=== PATIENT | female | born 1945 | race Caucasian/White ===

== ENCOUNTER 2017-08-23 14:10 | Inpatient (IN) | payer OTHER, BC ==
[~2017-08-23] VITALS: Ht 162.6 cm; Wt 63.5 kg
--- NOTE | ~2017-08-23 | H ---
[facility] [place] [address] HISTORY AND PHYSICAL Name: SANDY ZHAO Room #: 503-P ADM IN M.R.#: [id number] Admission: 08/25/17 Attend Phys: Jose Pena MD Discharge: Date of : 47 Report #: [id number] THIS REPORT FOR: //name// CC: Jose Randle DATE OF SERVICE: 08/25/2017 Note, I am covering for Dr. Jose Pena and therefore completing this history and physical for him. REFERRING PHYSICIAN: Arnaud Zambrano DO CHIEF COMPLAINT: Mobility and self-care deficits due to right hemiparesis. HISTORY OF PRESENT ILLNESS: The patient is a very pleasant 71-year-old right-hand dominant female who was admitted to [facility] with what was found to be an acute cerebrovascular accident. She has a past medical history of an ascending aortic aneurysm with dissection with repair in 2010, aortic valve replacement with a mechanical valve in 2010. She is on chronic anticoagulation with warfarin. She does have a history of tobacco abuse, hypertension and hyperlipidemia. She was admitted to [facility] on 08/21/2017 with symptoms of a stroke. She developed left-sided facial drooping, speech difficulties and right-sided weakness. She was not given TPA as noted from the records at [facility] because she was on Coumadin with an INR of 3.3. An MRI performed at that hospital was read as showing a left thalamic and high right medial parietal lobe infarction. She was treated with Plavix and pravastatin. Coumadin was held and then resumed on 08/22/2017. She was given heparin drip given heparin drip for bridging. Echocardiogram was read as showing an ejection fraction of 60%. She worked with physical therapy and occupational therapy and speech therapy at that facility. It was determined that she would benefit from an acute inpatient rehabilitation stay due to a decline in her overall function. She is now being admitted under Dr. Pena's care for rehabilitation. PAST MEDICAL HISTORY: As above, also pertinent for what was stated above and tobacco abuse and hypothyroidism. SOCIAL HISTORY: She lives with her in their own home. They have about 4 steps to get into the house. There are no steps once she gets inside. FUNCTIONAL HISTORY: Prior to admission, she was able to drive. She did not use an assistive device to ambulate. [address] [address] HISTORY AND PHYSICAL Name: SANDY ZHAO Room #: 503-P [facility]#: [id number] Admission: 08/25/17 Attend Phys: Jose Pena MD Discharge: Date of : 47 Report #: [id number] MEDICATIONS: Reviewed. Please see the written documentation of this history and physical for full details. ALLERGIES: Reviewed. Once again, please see the written documentation of this history and physical. REVIEW OF SYSTEMS: As above. Specifically, she has a left-sided facial droop. She has some difficulty with speaking. She denies problems with her swallowing function, although she may have had some difficulties at first. She denies chest pain, shortness of breath, fevers and chills. Otherwise, remainder of a 14-point review is negative except for what was stated above. PHYSICAL EXAMINATION: VITAL SIGNS: Her temperature is 36.7, pulse of 55, respirations 19, blood pressure 131/54. GENERAL: No acute distress, well developed, well nourished. CARDIOVASCULAR: S1, S2, irregular heart rate. LUNGS: Clear to auscultation. ABDOMEN: Soft, nontender, nondistended, positive bowel sounds. EXTREMITIES: Calves nontender. LYMPHATICS: No cervical adenopathy. MUSCULOSKELETAL: Functionally, she shows weakness on the right side with strength graded at 4-/5 proximally and distally. She is able to dorsiflex her right wrist and extend her fingers. Her right leg strength is also 4-/5 proximally and distally and there is evidence of a dorsiflexion present in the right ankle with a strength of 4-/5. Tone within normal limits on the left. Right side was mildly flaccid. NEUROLOGIC AND PSYCHIATRIC: Coordination is fair. Muscle stretch reflexes are 1/4 and symmetric. Sensation is intact. She is alert, able to answer my questions, pleasant and cooperative with the exam. She is dysarthric. There was no wet or gurgling quality to her voice. There was mild aphasia identified. IMPRESSION: Mobility and self-care deficits in a 71-year-old right-hand dominant female secondary to: 1. Dominant-sided hemiparesis secondary to ischemic cerebrovascular accident, left middle cerebral artery. 2. Dysarthria. 3. Balance impairment due to cerebrovascular accident. 4. Tobacco abuse. 5. Hypothyroidism. 6. Fine motor coordination impairments of the right upper extremity. 7. Mild footdrop on the right. 8. Facial droop, left side, likely due to high right medial parietal lobe infarction. [facility] [address] [place] [address] HISTORY AND PHYSICAL Name: SANDY ZHAO Room #: 503-P ADM IN Meet.#: [id number] Admission: 08/25/17 Attend Phys: Jose Pena MD Discharge: Date of : 47 Report #: [id number] PLAN: 1. Admit to the rehabilitation unit for comprehensive therapies. 2. Please see the plan of care post-admission physician evaluation and admission orders for full details of her rehabilitation care plan. 3. Weekly therapy meetings will be conducted with the team to discuss a rehabilitation progress. 4. Develop the rehabilitation program with her rehabilitation team. 5. Dr. Pena returns this coming Monday to assume care. 6. Smoking cessation counseling provided. POST-ADMISSION PHYSICIAN EVALUATION: A post-admission physician evaluation was conducted today. The patient's preadmission screening was reviewed in its entirety by myself. The current clinical status is supported by the information contained within. The patient is an appropriate candidate to undergo a comprehensive inpatient rehabilitation program consisting of PT, OT and ST 3 hours a day for at least 5 days per week. Furthermore, nothing has changed since the preadmission screening was completed to suggest that the patient would not be able to tolerate, would benefit from the rehabilitation program. It is my opinion that inpatient rehabilitation rather than senior living is more appropriate for the patient due to multiple medical needs, requiring comprehensive followup care. She is at risk for clinical complications during her participation in rehabilitation due to the following adverse medical conditions: Atrial fibrillation; history of valve replacements including a mechanical AVR, on chronic anticoagulation; hypertension; hypothyroidism and tobacco abuse. My plan to manage these conditions, which could impact participation in rehabilitation is to consult Internal Medicine and Dr. Browning of Neuropsychology to address the multiple medical issues. Cardiology may also be needed if Internal Medicine feels it is appropriate. She will have to follow up with Neurology within 6-12 weeks following her rehabilitation and with Cardiology within 2 weeks of discharge. INDIVIDUALIZED OVERALL PLAN OF CARE: Summarization of findings: The patient is receiving inpatient rehabilitation due to the following functional impairments: 1. Dominant-sided right hemiparesis due to cerebrovascular accident. 2. Dysarthria. 3. Left-sided facial droop. 4. Gait impairment due to cerebrovascular accident. 5. Balance impairment due to cerebrovascular accident. IDENTIFIED INTERVENTIONS: Include physical therapy, occupational therapy and speech therapy to address mobility, self-care deficits, communication, cognitive and swallowing impairments. Physical Medicine and Rehabilitation will provide management of her rehabilitation care plan. Internal Medicine will follow up [address] [address] HISTORY AND PHYSICAL Name: PAVELSANDY L Room #: 503-P [facility] IN ..#: [id number] Admission: 08/25/17 Attend Phys: Jose Pena MD Discharge: Date of : 47 Report #: [id number] for multiple medical issues. Rehabilitation nursing care 24 hours a day for care needs will be provided. printing services coordinator for discharge planning and medical equipment needs. Dietitian consultation for nutritional purposes. ESTIMATED LENGTH OF STAY: Approximately 10-14 days. ANTICIPATED FUNCTIONAL OUTCOME: Modified independent with mobility and self-care skills, which is a realistic goal based on her previous level of function. ANTICIPATED DISCHARGE DESTINATION: Home with her family. She will likely need home health services at that time. MEDICAL PROGNOSIS: Good. She will continue to receive Internal Medicine followup. ANTICIPATED THERAPIES: Including physical, occupational and speech therapy, 3 hours a day 5 days a week for an anticipated duration of 14-17 days. SUMMARIZATION OF TREATMENT PLAN: The patient will continue to receive an inpatient rehabilitation program as outlined above in an effort to improve her overall function and return home at a modified independent level within 14-17 days. <ELECTRONICALLY SIGNED> By: Jose Pena MD 09/05/17 [id number] Manuel Melara DO /nt
--- NOTE | ~2017-08-23 | HC ---
[facility] [place] [address] CONSULTATION Name: SANDY ZHAO Room #: 503-P ADM IN M.R.#: [id number] Admission: 08/25/17 Attend Phys: Jose Pena MD Discharge: Date of : 47 Report #: [id number] THIS REPORT FOR: //name// CC: Jose Randle DATE OF SERVICE: 08/27/2017 NEUROBEHAVIORAL STATUS EXAM ATTENDING PHYSICIAN: Jose Pena MD. ASPHALT PAVER: Igor Browning, PhD CLINICAL PRESENTATION: The patient is a 71-year-old female, admitted to [facility] for comprehensive inpatient rehabilitation program to improve functional mobility and activities of daily living and self-care along with mental status secondary to cerebrovascular accident. The patient has a medical history that includes an ascending aortic aneurysm with dissection and repair in 2010 and aortic valve replacement with mechanical valve in 2010. She is on anticoagulation utilizing warfarin. Her history includes tobacco abuse, hypertension and hyperlipidemia. She reported having difficulty with balance and coordination to the extent that her eventually brought her to the hospital. A MRI revealed a left thalamic and high right medial parietal lobe infarction. A complete description of her medical condition and history can be found in her medical records. Neuropsychological consultation was requested to provide assistance in the assessment of cognitive and emotional status and to provide recommendations and services. Prior to this most recent medical event, she was living independently in her home with her . The patient was independent with basic and instrumental activities of daily living. 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 She has 2 children, and her family is described as supportive. TECHNIQUES UTILIZED: Clinical interview, review of medical records, staff consultation and behavioral observation, mini mental status exam 2 standard version, clock drawing and calibrated ideational fluency assessment (letter and category) and brief abstract reasoning test. EXAMINATION FINDINGS: The patient was cooperative and pleasant during the interview and the assessment. There is no evidence of aphasia. She does not report auditory or visual hallucinations. Her presentation includes a dominant side hemiparesis secondary to the CVA. Her symptoms include difficulty with [facility] [address] [place] [address] CONSULTATION Name: SANDY ZHAO Pablito Room #: 503-P [facility] IN M.R.#: [id number] Admission: 08/25/17 Attend Phys: Jose Pena MD Discharge: Date of : 47 Report #: [id number] concentration, word finding and that it is taking her longer and with more effort to complete a task. She denies difficulty with memory or subjective depression. Feelings of anxiety are described. Her performance on the MMSE 2 brief version was extremely low with a raw score of 11 of 16, and T-score of 21. She was 3/3 for initial registration, 4/5 for orientation at time and 3/[address] She was 1/3 correct for immediate recall of 3 items after a brief time delay and distraction. Her performance improved on the MMSE 2 standard version to a raw score of 22 and a T-score of 30, which is at the second percentile. She was 2/5 for serial sevens, 2/2 for naming, 1/1 for repetition, 3/3 for comprehension. She could read and follow single command and write a sentence. She also could copy a simple geometric design. Performance in letter fluency was extremely low with a raw score of 9 and a T-score 24, which is less than 1%. Category fluency was extremely low with a raw score of 23 and a T-score of 27, which is at the 1st percentile. Total verbal fluency was less than 1% with a raw score of 32 and a T- score of 23. Brief verbal abstract reasoning test was impaired with a raw score 4 of 8. The patient is presenting with deficits in immediate recall, sustained concentration and verbal fluency. Deficits with expressive speech often can indicate an impairment with higher level planning and problem solving along with carrying out purposeful activity. Impairment in verbal fluency along with memory can often be seen with strokes within the left middle cerebral artery distribution. DIAGNOSTIC IMPRESSION: Neurocognitive disorder due to vascular disease, without behavior disorder -- extent to be determined, likely in the moderate range. Adjustment disorder with anxious mood. RECOMMENDATIONS: Continued use of compensatory strategies for areas of decreased cognition. She will benefit from a followup neuropsychological evaluation in approximately 3-6 months to clarify the severity of her cognitive deficits subsequent to the stroke. At this time, driving should be discontinued, and she will need increased assistance with the management of medication and nutrition. The use of relaxation techniques will help benefit the high degree of anxiety. Education in regard to the stroke will also be helpful for the patient and her family. Additionally, verbal praise and complements during participation in therapy along with assistance in the identification of deficits as a result of the [facility] [address] [place] [address] CONSULTATION Name: PAVELSANDY Room #: 503-P [facility] IN M.R.#: [id number] Admission: 08/25/17 Attend Phys: Jose Pena MD Discharge: Date of : 47 Report #: [id number] stroke. Thank you very much for allowing me to provide the consultation on this patient. <ELECTRONICALLY SIGNED> By: Igor Browning, PhD 09/02/17 1342 [id number] Igor Browning, PhD /nt
[2017-08-25] MEDS ORDERED: PLAVIX 75 MG TA75 M1 PO (10:53)
[2017-08-25] MEDS ORDERED: COLACE100 MG PO (10:53)
[2017-08-25] MEDS ORDERED: SYNTHROID75 MCG PO (10:54)
[2017-08-25] MEDS ORDERED: LASIX 40 MG TAB40 M2 PO (10:54)
[2017-08-25] MEDS ORDERED: LOPRESSOR50 PO (10:56)
[2017-08-25] MEDS ORDERED: PRAVACHOL20 MG PO (11:10)
[2017-08-25] MEDS ORDERED: COUMADIN 2.5MG2.5 M1 PO (11:12)
[2017-08-25] MEDS ORDERED: COUMADIN 3 MG TA3 M1 PO (11:13)
[2017-08-25 13:10] VITALS: BP 131/54
[2017-08-25 14:29] LABS: ABSOLUTE NEUTROPHILS 8.4 thou/uL (1.4-8.2); BASOPHILS 0.7 % (0.0-2.0); HEMOGLOBIN 15.3 gm/dL (12.0-15.0); LYMPHOCYTES 15.7 % (24.0-44.0); MCH 31.3 pg (26.0-34.0); MCHC 32.6 g/dL (28.0-37.0); MCV 96.1 fL (80.0-100.0); MONOCYTES 8.8 % (1.0-8.0); PLATELET COUNT 220 thou/uL (150-400); POLYS 71.8 % (36.0-66.0); RDW 13.6 % (10.5-14.5); WBC 11.7 thou/uL (4.0-11.0)
[2017-08-25 14:30] LABS: MANUAL DIFF NO
[2017-08-25 14:47] LABS: CALCIUM 9.5 mg/dL (8.5-10.1); CREATININE 0.9 mg/dL (0.6-1.0); POTASSIUM 4.4 mmol/L (3.5-5.1)
[2017-08-25 14:57] LABS: INR 3.8; PROTIME 37.6 Seconds (9.3-11.4)
[2017-08-25 20:00] VITALS: BP 129/69
[2017-08-26 06:04] LABS: HEMATOCRIT 46.7 % (37.0-47.0); HEMOGLOBIN 15.2 gm/dL (12.0-15.0); MCH 31.5 pg (26.0-34.0); MCHC 32.5 g/dL (28.0-37.0); MCV 96.7 fL (80.0-100.0); RBC 4.83 mil/uL (4.20-5.00); RDW 13.3 % (10.5-14.5); WBC 9.6 thou/uL (4.0-11.0)
[2017-08-26 06:14] LABS: CALCIUM 9.2 mg/dL (8.5-10.1); CREATININE 0.9 mg/dL (0.6-1.0); POTASSIUM 4.5 mmol/L (3.5-5.1)
[2017-08-26 06:16] LABS: INR 3.3; PROTIME 32.9 Seconds (9.3-11.4)
[2017-08-26 08:00] VITALS: BP 123/71
[2017-08-26 19:55] VITALS: BP 117/43
[2017-08-27 06:53] LABS: INR 3.2; PROTIME 31.8 Seconds (9.3-11.4)
[2017-08-27 08:00] VITALS: BP 120/72
[2017-08-27 19:34] VITALS: BP 114/56
[2017-08-28 05:14] LABS: INR 2.5; PROTIME 25.7 Seconds (9.3-11.4)
[2017-08-28 07:20] VITALS: BP 137/62
[2017-08-28 19:55] VITALS: BP 105/65
[2017-08-29 04:05] LABS: ABSOLUTE NEUTROPHILS 7.7 thou/uL (1.4-8.2); BASOPHILS 0.9 % (0.0-2.0); EOSINOPHILS 4.1 % (0.0-3.0); HEMATOCRIT 44.4 % (37.0-47.0); HEMOGLOBIN 14.7 gm/dL (12.0-15.0); LYMPHOCYTES 19.7 % (24.0-44.0); MCHC 33.1 g/dL (28.0-37.0); MCV 96.6 fL (80.0-100.0); MONOCYTES 7.6 % (1.0-8.0); PLATELET COUNT 212 thou/uL (150-400); POLYS 67.7 % (36.0-66.0); RDW 13.1 % (10.5-14.5); WBC 11.4 thou/uL (4.0-11.0)
[2017-08-29 04:07] LABS: INR 2.6; POTASSIUM 4.1 mmol/L (3.5-5.1); PROTIME 26.4 Seconds (9.3-11.4)
[2017-08-29 04:18] LABS: MANUAL DIFF NO
[2017-08-29 04:33] LABS: ALBUMIN 3.2 g/dL (3.4-5.0); CALCIUM 9.2 mg/dL (8.5-10.1); CREATININE 0.9 mg/dL (0.6-1.0); MAGNESIUM 2.2 mg/dL (1.8-2.4); TOTAL BILIRUBIN 0.6 mg/dL (<0.1-1.0); TOTAL PROTEIN 6.9 g/dL (6.4-8.2)
[2017-08-29 08:00] VITALS: BP 120/63
[2017-08-29 19:31] VITALS: BP 137/73
[2017-08-29 20:23] VITALS: BP 118/64
[2017-08-30 05:34] LABS: INR 1.9; PROTIME 19.6 Seconds (9.3-11.4)
[2017-08-30 07:30] VITALS: BP 135/70
[2017-08-30 20:27] VITALS: BP 138/74
[2017-08-31 04:36] LABS: INR 2.4; PROTIME 22.9 Seconds (9.3-11.4)
[2017-08-31 08:00] VITALS: BP 128/68
[2017-08-31 20:33] VITALS: BP 117/62
[2017-09-01 04:21] LABS: ABSOLUTE NEUTROPHILS 7.1 thou/uL (1.4-8.2); BASOPHILS 1.5 % (0.0-2.0); EOSINOPHILS 4.8 % (0.0-3.0); HEMATOCRIT 45.9 % (37.0-47.0); HEMOGLOBIN 15.3 gm/dL (12.0-15.0); LYMPHOCYTES 20.7 % (24.0-44.0); MCHC 33.3 g/dL (28.0-37.0); MCV 96.2 fL (80.0-100.0); MONOCYTES 8.6 % (1.0-8.0); PLATELET COUNT 215 thou/uL (150-400); POLYS 64.4 % (36.0-66.0); RBC 4.77 mil/uL (4.20-5.00); RDW 13.4 % (10.5-14.5)
[2017-09-01 04:34] LABS: CALCIUM 9.5 mg/dL (8.5-10.1); CREATININE 0.9 mg/dL (0.6-1.0); MAGNESIUM 2.1 mg/dL (1.8-2.4); POTASSIUM 4.2 mmol/L (3.5-5.1)
[2017-09-01 04:41] LABS: MANUAL DIFF NO
[2017-09-01 08:25] VITALS: BP 116/71
[2017-09-01 20:46] VITALS: BP 137/72
[2017-09-02 08:00] VITALS: BP 114/53
[2017-09-02 20:05] VITALS: BP 103/61
[2017-09-03 08:00] VITALS: BP 127/65
[2017-09-03 20:27] VITALS: BP 112/51
[2017-09-04 07:51] VITALS: BP 154/87
[2017-09-04 10:52] LABS: INR 2.6
[2017-09-04 19:44] VITALS: BP 116/60
[2017-09-05 06:31] LABS: ABSOLUTE NEUTROPHILS 7.4 thou/uL (1.4-8.2); BASOPHILS 0.9 % (0.0-2.0); EOSINOPHILS 5.6 % (0.0-3.0); HEMATOCRIT 44.8 % (37.0-47.0); LYMPHOCYTES 16.3 % (24.0-44.0); MCHC 33.5 g/dL (28.0-37.0); MCV 95.5 fL (80.0-100.0); MONOCYTES 8.6 % (1.0-8.0); PLATELET COUNT 222 thou/uL (150-400); POLYS 68.6 % (36.0-66.0); RBC 4.69 mil/uL (4.20-5.00); RDW 13.2 % (10.5-14.5); WBC 10.8 thou/uL (4.0-11.0)
[2017-09-05 06:39] LABS: MANUAL DIFF NO
[2017-09-05 06:51] LABS: CALCIUM 9.3 mg/dL (8.5-10.1); POTASSIUM 4.1 mmol/L (3.5-5.1)
[2017-09-05 08:00] VITALS: BP 120/55
[2017-09-05 19:46] VITALS: BP 121/50
[2017-09-06 06:28] LABS: INR 2.2; PROTIME 22.2 Seconds (9.3-11.4)
[2017-09-06 07:30] VITALS: BP 139/78
[2017-09-06] MEDS ORDERED: LASIX 40 MG TAB40 M2 PO (09:37)
[2017-09-06] MEDS ORDERED: PROTONIX40 M1 PO (09:37)
[2017-09-06] MEDS ORDERED: PRAVACHOL20 MG PO (09:37)
[2017-09-06] MEDS ORDERED: COUMADIN 2.5MG2.5 M1 PO (09:37)
[2017-09-06] MEDS ORDERED: LOPRESSOR50 PO (09:37)
[2017-09-06] MEDS ORDERED: PLAVIX 75 MG TA75 M1 PO (09:37)
[2017-09-06] MEDS ORDERED: COLACE100 MG PO (09:37)
[2017-09-06] MEDS ORDERED: COUMADIN 3 MG TA3 M1 PO (09:37)
[2017-09-06 10:27] VITALS: BP 139/78
[2017-09-06 10:35] VITALS: BP 139/78
[2017-09-06 12:01] VITALS: BP 139/78
== END 2017-09-06 11:50 | disposition home health service (06) | DRG 65 ==
LOC: ENTRNSPT 09-06 11:38 → EDTRNSPTSTS 09-06 11:40
PROVIDERS: Family Medicine; Nurse Practitioner; Nurse Practitioner Family
DX: I63.9 Cerebral infarction, unspecified (principal); G81.92 Hemiplegia, unspecified affecting left dominant side; I10 Essential (primary) hypertension; E78.5 Hyperlipidemia, unspecified; F43.22 Adjustment disorder with anxiety; E03.9 Hypothyroidism, unspecified; R47.1 Dysarthria and anarthria; F17.210 Nicotine dependence, cigarettes, uncomplicated; M21.371 Foot drop, right foot; R29.810 Facial weakness; R26.9 Unspecified abnormalities of gait and mobility; I48.91 Unspecified atrial fibrillation; R53.81 Other malaise; I95.9 Hypotension, unspecified; R47.01 Aphasia; Z71.6 Tobacco abuse counseling; Z95.2 Presence of prosthetic heart valve; Z79.02 Long term (current) use of antithrombotics/antiplatelets; Z79.01 Long term (current) use of anticoagulants; Z79.899 Other long term (current) drug therapy
CPT/HCPCS: 10112